=== PATIENT | female | born 1965 | race Caucasian/White ===

== ENCOUNTER 2019-05-13 02:17 | Emergency (ER) | payer SELFPAY ==
[~2019-05-13] VITALS: Ht 172.7 cm; Wt 77.1 kg
[2019-05-13 02:20] VITALS: BP_SYST 149
[2019-05-13] MEDS ORDERED: DIPH-TET-PERTUS Vaccine 0.5 ML VIAL (ADACEL) I.M. ONE (03:00)
[2019-05-13] MEDS ORDERED: SULFAMETHOXAZOLE/TRIMETHOPR DS 1 TABLET PO ONE (03:00)
[2019-05-13] MEDS ORDERED: MUPIROCIN 2% TOPICAL OINTMENT 22 GM TP ONE (03:00)
[2019-05-13 03:15] VITALS: BP_SYST 149
[2019-05-13] MEDS ORDERED: BACITRACIN 1 GM OINT TP ONE ×2 (03:15→03:23)
[2019-05-13] MEDS ORDERED: BACITRACIN ZINC 15 GM TOPICAL OINTMENT TP ONE (03:15)
== END 2019-05-13 03:15 ==
LOC: SED 02:17
DX: S60.561A Insect bite (nonvenomous) of right hand, initial encounter (principal); Z88.0 Allergy status to penicillin; Z88.8 Allergy status to other drugs, medicaments and biological substances; Z88.1 Allergy status to other antibiotic agents; W57.XXXA Bitten or stung by nonvenomous insect and other nonvenomous arthropods, initial encounter; Y93.89 Activity, other specified; Y92.89 Other specified places as the place of occurrence of the external cause; Y99.8 Other external cause status
CPT/HCPCS: 90715; 99283

== ENCOUNTER 2020-11-17 18:35 | Emergency (ER) | payer MEDICAID, SELFPAY ==
[~2020-11-17] VITALS: Ht 162.6 cm; Wt 59.0 kg
[2020-11-17 18:54] VITALS: BP_SYST 120
--- NOTE | 2020-11-17 19:41 | NUR ---
Per supervisor statement clerks, pt [employer]BS.
== END 2020-11-17 19:41 | disposition left against medical advice (07) ==
LOC: SED 18:35
DX: R05 Cough (principal); Z53.21 Procedure and treatment not carried out due to patient leaving prior to being seen by health care provider